=== PATIENT | male | born 1955 ===

== ENCOUNTER 2017-06-08 09:47 | Observation (INO) | payer OTHER ==
--- NOTE | 2017-06-08 10:17 | C.PDOC ---
History Of Present Illness The pt is a 61yo male with no known past medical history, presents to the ED for evaluation after sustaining mechanical fall at 8AM today. Pt reports he was attempting to tie his shoelaces while on the stairs and lost balance (was drinking alcohol night before), subsequently fell down approximately 15 steps of stairs. Pt currently reports he has mid-sternal chest pain as well as right sided back pain, both worsened with deep inspiration. He denies any head injuries, loss of consciousness, neck pain, abdominal pain. Denies headache at this time. Patient also denies use of blood thinners. Pt also denies using any pain medications for his symptoms. Currently, he offers no additional medical complaints. PMD: None . - HPI Time Seen by Provider: 06/08/17 09:56 Chief Complaint (Nursing): Trauma History Per: Patient History/Exam Limitations: no limitations Onset/Duration Of Symptoms: Hrs (2) Injury Occurred (Timing): Hours Ago: (2) Location Of Injury: Right: Back, Anterior: Chest Past Medical History Reviewed: Historical Data, Nursing Documentation, Vital Signs Vital Signs: Last Vital Signs Temp 98.1 F 06/08/17 13:20 Pulse 62 06/08/17 13:20 Resp 18 06/08/17 13:20 BP 117/71 06/08/17 13:20 Pulse Ox 99 06/08/17 13:37 - Medical History PMH: No Chronic Diseases Denies: Diabetes, HTN, Hypercholesterolemia Surgical History: No Surg Hx Family History: States: No Known Family Hx - Social History Hx Tobacco Use: Yes Hx Alcohol Use: Yes Hx Substance Use: No Review Of Systems Except As Marked, All Systems Reviewed And Found Negative. Cardiovascular: Positive for: Chest Pain (mid-sternal) Gastrointestinal: Negative for: Abdominal Pain Musculoskeletal: Positive for: Back Pain. Negative for: Neck Pain Neurological: Negative for: Headache Physical Exam - Physical Exam Appears: Well, No Acute Distress Skin: Normal Color Head: Atraumatic Eye(s): bilateral: Normal Inspection, EOMI Ear(s): Bilateral: Normal Nose: Normal Oral Mucosa: Moist Tongue: Normal Appearing Lips: Normal Appearing Teeth: Normal Dentition Throat: Normal Neck: Normal, No Midline Cervical Tenderness, No Paracervical Tenderness Chest: Tenderness (at right lateral chest wall (lateral ribs)) Cardiovascular: Rhythm Regular Respiratory: Normal Breath Sounds Gastrointestinal/Abdominal: Normal Exam, Soft, No Tenderness Back: Normal Inspection Extremity: Normal ROM, No Deformity, No Swelling Neurological/Psych: Oriented x3, Normal Speech, Normal Cognition ED Course And Treatment - Laboratory Results Result Diagrams: 06/08/17 10:25 06/08/17 10:25 ECG: Interpreted By Me, Viewed By Me ECG Rhythm: Sinus Rhythm ECG Interpretation: Normal Rate From EC O2 Sat by Pulse Oximetry: 99 (RA) Pulse Ox Interpretation: Normal Medical Decision Making Medical Decision Making: Time: 1007 Impression: 61yo male s/p fall, rule out cardiac contusion, pneumothorax, rib fracture Plan: -- CXR -- EKG -- Bloodwork -- Morphine 5mg IV -- Reassess Time: 1037 Upon provider read of CXR, indication of rib fractures noted. CT Chest ordered for further imaging to rule out pneumothorax and additional rib fractures. Time: 1144 CT Chest Impression: Acute fracture at right 7 and 9th ribs laterally. No evidence of pneumothorax or pleural effusion. Time: 1200 Pt complaining of headache, ordered Tylenol 975 mg PO as well as CT Head. ED OBSERVATION Date of observation admission: 06/08/17 Time of observation admission: 12:06 - Observation admission statement Patient is being placed in observation because:: Pt now with headache s/p falling down flight of stairs. Will need more imaging (CT) - Goals of Observation Goals of observation are:: Improvement of symptoms - Progress Note Progress Note: 06/08/17 13:00 CT Head Impression: No evidence of acute intracranial hemorrhage intracranial collection mass effect or midline shift. Sinuses mucosal disease more prominent in the ethmoid and left maxillary sinuses. CT C-Spine Tenderness: No evidence of acute displaced fracture or subluxation at the cervical spine. Moderate degenerative changes more prominent at C5-C6 and C6-C7. 06/08/17 13:05 Pt feels better. Will d/c home. Disposition - Disposition Disposition: HOME/ ROUTINE Disposition Time: 13:37 Condition: IMPROVED - POA Present On Arrival: None - Clinical Impression Clinical Impression: Rib fractures, Fall, Alcohol ingestion - Scribe Statement The provider has reviewed the documentation as recorded by the Hunter Guzman Provider Attestation: All medical record entries made by the Casiibtaniya were at my direction and personally dictated by me. I have reviewed the chart and agree that the record accurately reflects my personal performance of the history, physical exam, medical decision making, and the department course for this patient. I have also personally directed, reviewed, and agree with the discharge instructions and disposition.
[2017-06-08] MEDS ORDERED: Morphine 4 MG/ML VIAL ONE (10:24)
[2017-06-08 10:29] LABS: BASO % 0.3 % (0.0-2.0); EOS # 0.1 K/uL (0.0-0.7); EOS % 0.7 % (0.0-4.0); HEMATOCRIT 42.9 % (35.0-51.0); LYMPH # 1.7 K/uL (1.0-4.3); LYMPH % 15.4 % (20.0-40.0); MEAN CELL VOLUME 92.6 fL (80.0-94.0); MEAN CORPUSCULAR HEMOGLOBIN 31.2 pg (27.0-31.0); MEAN CORPUSCULAR HGB CONC 33.7 g/dL (33.0-37.0); MONO # 0.6 K/uL (0.0-0.8); MONO % 5.2 % (0.0-10.0); NRBC % 0.1 % (0.0-2.0); RED CELL DISTRIBUTION WIDTH 13.8 % (11.5-14.5); WHITE BLOOD COUNT 11.2 K/uL (4.8-10.8)
[2017-06-08 10:38] LABS: CHLORIDE 100 mmol/L (98-107)
[2017-06-08 10:39] LABS: POTASSIUM 4.3 mmol/L (3.6-5.2); SODIUM 139 mmol/L (132-148)
[2017-06-08 10:41] LABS: ALB/GLOB RATIO 1.2 (1.0-2.1); ALKALINE PHOSPHATASE 72 U/L (38-126); ALT/SGPT 28 U/L (21-72); AST/SGOT 28 U/L (17-59); BILIRUBIN,TOTAL 0.6 mg/dL (0.2-1.3); BLOOD UREA NITROGEN 6 mg/dL (9-20); CARBON DIOXIDE 26 mmol/L (22-30); GFR AFRICAN-AMERICAN > 60; GLUCOSE,RANDOM 98 mg/dL (75-110); TOTAL PROTEIN 7.3 g/dL (6.3-8.3)
[2017-06-08 10:42] LABS: ALCOHOL SERUM 59 mg/dl (0-10); MAGNESIUM 1.9 mg/dL (1.6-2.3)
--- NOTE | 2017-06-08 11:46 | CT ---
PROCEDURE: CT Chest without contrast HISTORY: Right rib trauma; r/o pneumothorax more fxs COMPARISON: None. TECHNIQUE: Contiguous axial images were obtained through the chest without intravenous contrast enhancement. Sagittal and coronal reconstructions were performed. Radiation dose (DLP): 217.09 mGy-cm. This CT exam was performed using one or more of the following dose reduction techniques: Automated exposure control, adjustment of the mA and/or kV according to patient size, and/or use of iterative reconstruction technique. FINDINGS: LUNGS: Mild emphysematous changes seen predominant in the right upper lobe. Small linear opacities at the right apex likely scar tissue. No evidence of pneumonia. No evidence of lung contusion. MEDIASTINUM: Unremarkable thoracic aorta. No aneurysm. Normal sized heart. Main pulmonary artery unremarkable. No vascular congestion. No lymphadenopathy. PLEURA: No evidence of pleural effusion or pneumothorax. BONES: Acute fracture at the lateral aspect of the right 9 and 7 ribs. UPPER ABDOMEN: Grossly unremarkable. OTHER FINDINGS: None. IMPRESSION: Acute fracture at the right 7 and 9th ribs laterally. No evidence of pneumothorax or pleural effusion.
--- NOTE | 2017-06-08 12:42 | CT ---
PROCEDURE: CT HEAD WITHOUT CONTRAST. HISTORY: Fell down stairs; now w/ headach; r/o bleed COMPARISON: None available. TECHNIQUE: Axial computed tomography images were obtained through the head/brain without intravenous contrast. Radiation dose: Total exam DLP = 957.66 mGy-cm. This CT exam was performed using one or more of the following dose reduction techniques: Automated exposure control, adjustment of the mA and/or kV according to patient size, and/or use of iterative reconstruction technique. FINDINGS: HEMORRHAGE: No intracranial hemorrhage. BRAIN: No mass effect or edema. No atrophy or chronic microvascular ischemic changes. VENTRICLES: Unremarkable. No hydrocephalus. CALVARIUM: Unremarkable. PARANASAL SINUSES: Moderate sinuses mucosal disease more prominent at the ethmoid and left maxillary sinus. MASTOID AIR CELLS: Unremarkable as visualized. No inflammatory changes. OTHER FINDINGS: None. IMPRESSION: No evidence of acute intracranial hemorrhage intracranial collection mass effect or midline shift. Sinuses mucosal disease more prominent in the ethmoid and left maxillary sinuses.
--- NOTE | 2017-06-08 12:47 | CT ---
PROCEDURE: CT Cervical Spine without contrast HISTORY: Fell down COMPARISON: No prior similar study available for comparison. TECHNIQUE: Axial computed tomography images were obtained of the cervical spine without the use of intravenous contrast. Coronal and sagittal reformatted images were created and reviewed. Radiation dose: Total exam DLP = 478. MGy-cm. This CT exam was performed using one or more of the following dose reduction techniques: Automated exposure control, adjustment of the mA and/or kV according to patient size, and/or use of iterative reconstruction technique. FINDINGS: VERTEBRAE: No fracture. Normal alignment. No destructive bony lesion. DISCS/SPINAL CANAL/NEURAL FORAMINA: Moderate degenerative changes more prominent at C5-C6. Narrowing of the intervertebral disc is space also more prominent at C5-C6 and C6-C7 PARASPINAL SOFT TISSUES: Unremarkable. OTHER FINDINGS: None. IMPRESSION: No evidence of acute displaced fracture or subluxation at the cervical spine. Moderate degenerative changes more prominent at C5-C6 and C6-C7.
[2017-06-08 13:02] VITALS: O2SAT 99
[2017-06-08 13:21] VITALS: BP 117/71; PULSE 62; RESP 18; TEMP 98.1
--- NOTE | 2017-06-08 14:46 | RAD ---
PROCEDURE: Radiographs of the Chest and Right Ribs. HISTORY: Fell down stairs; right lateral rib pain; r/o fx COMPARISON: None available. TECHNIQUE: Frontal radiograph of the chest and multiple oblique radiographs of the right ribs were obtained. FINDINGS: RIGHT RIBS: There are acute fracture at the lateral aspect of the right 9th and 7th ribs. LUNGS: Linear opacity seen at the lung bases may be atelectasis P PLEURA: Blunting of the right costophrenic angle which could be due to pleural thickening or pleural effusion CARDIOVASCULAR: Normal sized heart. No pulmonary vascular congestion. OTHER FINDINGS: None. IMPRESSION: Acute fracture at the lateral aspect of the right 7th and 9th ribs. Blunting of the right costophrenic angle.
--- NOTE | 2017-06-18 20:05 | CARD ---
APPROVED REPORT EKG Measurement Heart [id number] <Conclusion> Normal sinus rhythm Normal ECG
== END 2017-06-08 13:36 | disposition home or self-care (01) ==
LOC: C.ER 09:47 → C.9OBSV 12:05
PROVIDERS: ADMIT Emergency Medicine; ATTEND Emergency Medicine
DX: F10.120 Alcohol abuse with intoxication, uncomplicated (principal); Y90.2 Blood alcohol level of 40-59 mg/100 ml; Z87.891 Personal history of nicotine dependence; S22.43XA Multiple fractures of ribs, bilateral, initial encounter for closed fracture; W10.9XXA Fall (on) (from) unspecified stairs and steps, initial encounter
CPT/HCPCS: 70450; 71101; 71250; 72125; 80053; 82550; 83735; 84484; 85025; 96374; 99285; G0378; G0480; J2270

== ENCOUNTER 2017-10-03 11:27 | Observation (INO) | payer SELFPAY ==
[2017-10-03] MEDS ORDERED: Sodium Chloride 0.9% 1,000 ML IV ONE (11:39)
[2017-10-03] MEDS ORDERED: Sodium Chloride 0.9% 1,000 ML ONE (11:50)
--- NOTE | 2017-10-03 11:52 | C.PDOC ---
History Of Present Illness 62 year old male brought to the ED after having a syncopal episode; patient does not recall what happened but states witness were present. Patient reports feeling sudden onset of CP associated with SOB and then he passed out. As per witness, patient did not hit his head when he passed out. Patient denies prior syncopal episode or PMHx of cardiac disease in immediate family. PMhx of cigarette smoking. Time Seen by Provider: 10/03/17 11:29 Chief Complaint (Nursing): Syncope History Per: Patient, EMS History/Exam Limitations: no limitations Onset/Duration Of Symptoms: Hrs Current Symptoms Are (Timing): Gone Activity At Onset Of Symptoms: Standing Associated Symptoms Preceding Syncopal Episode: Other (CP and SOB) Seizure Or Post-ictal Symptoms: None Fall Associated With With Symptoms: Yes Additional History Per: Patient, EMS Past Medical History Reviewed: Historical Data, Nursing Documentation, Vital Signs Vital Signs: Last Vital Signs Temp 98.2 F 10/05/17 08:52 Pulse 58 L 10/05/17 08:52 Resp 20 10/05/17 08:52 BP 112/68 10/05/17 08:52 Pulse Ox 98 10/05/17 08:52 - Medical History PMH: No Chronic Diseases Surgical History: No Surg Hx Family History: States: No Known Family Hx - Social History Hx Tobacco Use: Yes Hx Alcohol Use: Yes Hx Substance Use: No - Immunization History Hx Tetanus Toxoid Vaccination: No Hx Influenza Vaccination: No Hx Pneumococcal Vaccination: No Review Of Systems Except As Marked, All Systems Reviewed And Found Negative. Constitutional: Negative for: Fever, Chills Cardiovascular: Positive for: Chest Pain. Negative for: Palpitations Respiratory: Positive for: Shortness of Breath. Negative for: Cough Gastrointestinal: Negative for: Nausea, Vomiting, Abdominal Pain, Diarrhea Genitourinary: Negative for: Dysuria, Hematuria Musculoskeletal: Negative for: Neck Pain, Back Pain Skin: Negative for: Rash Neurological: Negative for: Weakness, Numbness, Headache, Dizziness Physical Exam - Physical Exam Appears: Well, Non-toxic, No Acute Distress Skin: Normal Color, Warm, Dry Head: Atraumatic, Normacephalic Eye(s): bilateral: Normal Inspection, PERRL, EOMI Oral Mucosa: Moist Neck: Normal, Normal ROM, No Midline Cervical Tenderness, No Paracervical Tenderness, No Step Off Deformity, Supple Cardiovascular: Rhythm Regular Respiratory: Normal Breath Sounds, No Rales, No Rhonchi, No Wheezing Gastrointestinal/Abdominal: Normal Exam, Bowel Sounds, Soft, No Tenderness Extremity: Normal ROM, No Pedal Edema, No Calf Tenderness, No Swelling Extremity: Bilateral: Atraumatic, Normal Color And Temperature, Normal ROM Neurological/Psych: Oriented x3, Normal Speech, Normal Cognition, Normal Cranial Nerves, No Cerebellar Signs, Normal Motor, Normal Sensation, No Dysarthria, No Romberg Gait: Steady ED Course And Treatment - Laboratory Results Result Diagrams: 10/05/17 07:30 10/05/17 07:30 ECG: Interpreted By Me, Viewed By Me ECG Rhythm: Sinus Rhythm ECG Interpretation: No Acute Changes Interpretation Of ECG: sinus rhythm 74 BPM, occasional PVCs, normal axis, no acute ST or T wave changes. Rate From EC O2 Sat by Pulse Oximetry: 100 (On RA) Pulse Ox Interpretation: Normal - Radiology CXR: Interpreted by Me, Viewed By Me CXR Interpretation: Yes: Other (Right apical pleural thickening and/or scarring. Right lateral 9th rib fracture deformity re-identified.) - CT Scan/US Head CT Other Rad Studies (CT/US): Interpreted By Me, Read By Radiologist, Radiology Report Reviewed CT/US Interpretation: FINDINGS: HEMORRHAGE: No intracranial hemorrhage. BRAIN : No mass effect or edema. Nonspecific white matter hypodensities, which are nonspecific, but often seen with chronic microvascular ischemic disease ; this is most prominent within the right periventricular region. Please note that MRI with diffusion imaging is more sensitive in the detection of acute ischemic event. VENTRICLES: No hydrocephalus. CALVARIUM: Unremarkable. PARANASAL SINUSES: Mucosal thickening of the ethmoid air cells. MASTOID AIR CELLS: Unremarkable as visualized. No inflammatory changes. OTHER FINDINGS: None. IMPRESSION: Nonspecific white matter changes as above. Mucosal thickening of the ethmoid air cells. Correlate clinically for sinusitis. Progress Note: Plan: Blood work, CXR, EKG, CT head ordered and reviewed. Patient given IV NS bolus, PO ASA (after CT head neg). - Physician Consult Information Physician Contacted: Arielle Quinn Disposition - Disposition Disposition: HOSPITALIZED Disposition Time: 14:41 Condition: STABLE - Clinical Impression Clinical Impression: Chest pain, Syncope - Scribe Statement The provider has reviewed the documentation as recorded by the Scribe Matt Gabriel All medical record entries made by the Hunter were at my direction and personally dictated by me. I have reviewed the chart and agree that the record accurately reflects my personal performance of the history, physical exam, medical decision making, and the department course for this patient. I have also personally directed, reviewed, and agree with the discharge instructions and disposition. Decision To Admit - Pt Status Changed To: Hospital Disposition Of: Observation - . Bed Request Type: Telemetry Admitting Physician: Arielle Quinn Patient Diagnosis: Syncope, Chest pain
[2017-10-03 11:58] LABS: BASO % 0.6 % (0.0-2.0); EOS # 0.4 K/uL (0.0-0.7); EOS % 5.4 % (0.0-4.0); HEMATOCRIT 45.7 % (35.0-51.0); LYMPH # 1.7 K/uL (1.0-4.3); LYMPH % 23.7 % (20.0-40.0); MEAN CELL VOLUME 92.5 fL (80.0-94.0); MEAN CORPUSCULAR HEMOGLOBIN 31.5 pg (27.0-31.0); MEAN CORPUSCULAR HGB CONC 34.1 g/dL (33.0-37.0); MEAN PLATELET VOLUME 8.8 fL (7.2-11.7); MONO # 0.6 K/uL (0.0-0.8); MONO % 8.6 % (0.0-10.0); NRBC % 0.1 % (0.0-2.0); RED CELL DISTRIBUTION WIDTH 13.6 % (11.5-14.5); WHITE BLOOD COUNT 7.4 K/uL (4.8-10.8)
[2017-10-03 12:14] LABS: ALB/GLOB RATIO 1.4 (1.0-2.1); ALKALINE PHOSPHATASE 81 U/L (38-126); ALT/SGPT 29 U/L (21-72); AST/SGOT 35 U/L (17-59); BILIRUBIN,TOTAL 0.9 mg/dL (0.2-1.3); BLOOD UREA NITROGEN 8 mg/dL (9-20); CALCIUM 8.2 mg/dl (8.6-10.4); CARBON DIOXIDE 29 mmol/L (22-30); CHLORIDE 104 mmol/L (98-107); GFR AFRICAN-AMERICAN > 60; GLUCOSE,RANDOM 94 mg/dL (75-110); SODIUM 138 mmol/L (132-148); TOTAL PROTEIN 6.6 g/dL (6.3-8.3)
--- NOTE | 2017-10-03 12:24 | CT ---
PROCEDURE: CT HEAD WITHOUT CONTRAST. HISTORY: SYNCOPE COMPARISON: None available. TECHNIQUE: Axial computed tomography images were obtained through the head/brain without intravenous contrast. Radiation dose: Total exam DLP = 925.93 mGy-cm. This CT exam was performed using one or more of the following dose reduction techniques: Automated exposure control, adjustment of the mA and/or kV according to patient size, and/or use of iterative reconstruction technique. FINDINGS: HEMORRHAGE: No intracranial hemorrhage. BRAIN: No mass effect or edema. Nonspecific white matter hypodensities, which are nonspecific, but often seen with chronic microvascular ischemic disease ; this is most prominent within the right periventricular region. Please note that MRI with diffusion imaging is more sensitive in the detection of acute ischemic event. VENTRICLES: No hydrocephalus. CALVARIUM: Unremarkable. PARANASAL SINUSES: Mucosal thickening of the ethmoid air cells. MASTOID AIR CELLS: Unremarkable as visualized. No inflammatory changes. OTHER FINDINGS: None. IMPRESSION: Nonspecific white matter changes as above. Mucosal thickening of the ethmoid air cells. Correlate clinically for sinusitis.
[2017-10-03 12:27] LABS: INR 1.1; PARTIAL THROMBOPLASTIN TIME 33 SECONDS (21-34)
--- NOTE | 2017-10-03 13:12 | RAD ---
HISTORY: SYNCOPE COMPARISON: Chest x-ray performed 06/08/17 TECHNIQUE: Chest, one view. FINDINGS: LUNGS: Right apical pleural thickening and/or scarring. No focal consolidation. Please note that chest x-ray has limited sensitivity for the detection of pulmonary masses. PLEURA: No significant pleural effusion identified. No definite pneumothorax . CARDIOVASCULAR: Heart size appears within normal limits. OSSEOUS STRUCTURES: Right lateral 9th rib fracture deformity re-identified. VISUALIZED UPPER ABDOMEN: Unremarkable. OTHER FINDINGS: None. IMPRESSION: Right apical pleural thickening and/or scarring. Right lateral 9th rib fracture deformity re-identified.
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
[2017-10-03] MEDS: Pantoprazole 20 mg EC Tab PO SCH (17:44)
[2017-10-04 04:47] VITALS: RESP 20
[2017-10-04 06:24] LABS: BASO % 0.3 % (0.0-2.0); EOS # 0.4 K/uL (0.0-0.7); EOS % 5.7 % (0.0-4.0); HEMATOCRIT 42.4 % (35.0-51.0); LYMPH % 27.7 % (20.0-40.0); MEAN CELL VOLUME 92.1 fL (80.0-94.0); MEAN CORPUSCULAR HEMOGLOBIN 30.9 pg (27.0-31.0); MEAN CORPUSCULAR HGB CONC 33.6 g/dL (33.0-37.0); MEAN PLATELET VOLUME 9.1 fL (7.2-11.7); MONO # 0.8 K/uL (0.0-0.8); MONO % 11.7 % (0.0-10.0); RED CELL DISTRIBUTION WIDTH 13.5 % (11.5-14.5); WHITE BLOOD COUNT 7.3 K/uL (4.8-10.8)
[2017-10-04 08:07] LABS: THYROID STIMULATING HORMONE 1.47 mIU/L (0.46-4.68)
[2017-10-04 08:28] LABS: ALB/GLOB RATIO 1.4 (1.0-2.1); ALKALINE PHOSPHATASE 70 U/L (38-126); ALT/SGPT 38 U/L (21-72); AST/SGOT 26 U/L (17-59); BILIRUBIN,TOTAL 1.1 mg/dL (0.2-1.3); BLOOD UREA NITROGEN 7 mg/dL (9-20); CALCIUM 8.1 mg/dl (8.6-10.4); CARBON DIOXIDE 26 mmol/L (22-30); CHLORIDE 105 mmol/L (98-107); CHOLESTEROL 165 mg/dL (0-199); GFR AFRICAN-AMERICAN > 60; GLUCOSE,RANDOM 92 mg/dL (75-110); MAGNESIUM 1.8 mg/dL (1.6-2.3); PHOSPHOROUS 3.4 mg/dL (2.5-4.5); POTASSIUM 3.8 mmol/L (3.6-5.2); SODIUM 137 mmol/L (132-148)
[2017-10-04] MEDS: Pantoprazole 20 mg EC Tab PO SCH (09:36)
[2017-10-04] MEDS: Enoxaparin 30 mg Syringe SC SCH (09:36)
[2017-10-04] MEDS ORDERED: Influenza Vaccine 60 mcg/0.5 mL SYR (4YR UP) IM ONE (14:00)
[2017-10-04] MEDS ORDERED: Pneumococcal 23-Valent Vaccine IM ONE (14:00)
--- NOTE | 2017-10-04 14:16 | VASCLAB ---
PROCEDURE: HISTORY: Syncope COMPARISON: None available. TECHNIQUE: Grayscale and duplex Doppler evaluation of the cervical carotid and vertebral arteries were performed. The common carotid, carotid bifurcations and cervical Internal Carotid Artery (ICA) and proximal External Carotid Artery (ECA) were evaluated. The vertebral arteries were evaluated for gross patency and flow direction. Report prepared by Nacho Stevens, BS, RVT FINDINGS: RIGHT CAROTID ARTERIES: 1. Common Carotid Artery: No significant focal plaque formation of the right common carotid artery. Maximum Peak Systolic velocity: 74 cm/sec: End-diastolic velocity 20 cm/sec. 2. Carotid Bifurcation: plaque formation. Maximum Peak Systolic velocity: 66 cm/sec: End-diastolic velocity 13 cm/sec. 3. Internal Carotid Artery: Plaque description: 84 3.1. Proximal Segment: Peak systolic velocity 52 cm/sec: End-diastolic velocity 17 cm/sec - % stenosis 0-15% 3.2. Middle Segment: Peak systolic velocity 76 cm/sec: End-diastolic velocity 30 cm/sec - % stenosis 0-15% 3.3. Distal Segment: Peak systolic velocity 84 cm/sec: End-diastolic velocity 30 cm/sec - % stenosis 0-15% 4. External Carotid Artery: No significant focal plaque formation. Peak systolic velocity 84 cm/sec 5. ICA/CCA Ratio: 1.1 LEFT CAROTID ARTERIES: 1. Common Carotid Artery: No significant focal plaque formation of the left common carotid artery. Maximum Peak Systolic velocity: 95 cm/sec: End-diastolic velocity 24 cm/sec. 2. Carotid Bifurcation: plaque formation. Maximum Peak Systolic velocity: 74 cm/sec: End-diastolic velocity 22 cm/sec. 3. Internal Carotid Artery: Plaque description: 3.1. Proximal Segment: Peak systolic velocity 76 cm/sec: End-diastolic velocity 27 cm/sec - % stenosis 0-15% 3.2. Middle Segment: Peak systolic velocity 83 cm/sec: End-diastolic velocity 35 cm/sec - % stenosis 0-15% 3.3. Distal Segment: Peak systolic velocity 96 cm/sec: End-diastolic velocity 34 cm/sec - % stenosis 0-15% 4. External Carotid Artery: No significant focal plaque formation. Peak systolic velocity 95 cm/sec 5. ICA/CCA Ratio: 1.0 VERTEBRAL ARTERIES: 1. Right Vertebral Artery: The right vertebral artery flow direction is antegrade. 2. Left Vertebral Artery: The left vertebral artery flow direction is antegrade. OTHER FINDINGS: 1. Right Brachial Blood pressure: 116 mmHg. 2. Left Brachial Blood pressure: 108 mmHg. IMPRESSION: RIGHT: Duplex scan does not suggest hemodynamically significant stenosis of the right extracranial carotid arteries. LEFT: Duplex scan does not suggest hemodynamically significant stenosis of the left extracranial carotid arteries.
--- NOTE | 2017-10-04 16:43 | CP.PCM.PN ---
Addendum entered and electronically signed by Luis Bazzi 10/04/17 17:35: Echocardiogram report: Normal EF, Normal biventricular function, No structural valvular abnormality and no pericardial effusion. Please refer to offical report for a complete impression Original Note: <Luis Bazzi - Last Filed: 10/04/17 17:13> Subjective - Date & Time of Evaluation Date of Evaluation: 10/04/17 Time of Evaluation: 07:40 - Subjective Subjective: Medicine note (PGY-1): Dr. Quinn's service Patient was seen and examined at bedside. Patient states that he is doing well but admits to chest pain and headache that occurred at 4:15am. During the encounter, patient stated that he now has decreased chest pain but still with a headache. Patient denies SOB, palpitations, nausea, vomiting, fever, chills and abdominal pain. Objective - Vital Signs/Intake and Output Vital Signs (last 24 hours): Temp Pulse Resp BP Pulse Ox 98 F 56 L 20 114/64 97 10/04/17 08:11 10/04/17 08:11 10/04/17 08:11 10/04/17 08:11 10/04/17 08:11 Intake and Output: 10/04/17 10/04/17 06:59 18:59 Intake Total 30 300 Balance 30 300 - Medications Medications: Current Medications Aspirin (Aspirin Chewable) 81 mg PO DAILY [facility] Last Admin: 10/04/17 09:36 Dose: 81 mg Enoxaparin Sodium (Lovenox) 30 mg SC DAILY [facility] Last Admin: 10/04/17 09:36 Dose: 30 mg Pantoprazole Sodium (Protonix Ec Tab) 20 mg PO DAILY [facility] Last Admin: 10/04/17 09:36 Dose: 20 mg Rosuvastatin Calcium (Crestor) 5 mg PO HS [facility] Last Admin: 10/03/17 21:14 Dose: 5 mg - Labs Labs: 10/04/17 06:16 10/04/17 06:16 PT 13.0 SECONDS (9.7-12.2) H 10/03/17 11:53 INR 1.1 10/03/17 11:53 APTT 33 SECONDS (21-34) 10/03/17 11:53 - Constitutional Appears: No Acute Distress - Head Exam Head Exam: ATRAUMATIC - Eye Exam Eye Exam: EOMI - ENT Exam ENT Exam: Mucous Membranes Moist - Respiratory Exam Respiratory Exam: Clear to Ausculation Bilateral, NORMAL BREATHING PATTERN - Cardiovascular Exam Cardiovascular Exam: REGULAR RHYTHM, +S1, +S2 - GI/Abdominal Exam GI & Abdominal Exam: Soft, Normal Bowel Sounds. absent: Tenderness - Extremities Exam Extremities Exam: Normal Inspection. absent: Calf Tenderness, Pedal Edema - Neurological Exam Neurological Exam: Alert, Awake, Oriented x3 - Psychiatric Exam Psychiatric exam: Normal Affect - Skin Skin Exam: Normal Color Assessment and Plan (1) Syncope Assessment & Plan: Academic AdviserDr. Minaya consulted----> Help appreciated Labs: * RAFAELA Panel: negative X3, Lipid Panel: T, Chol: 165, LDL: 68, HDL: 72, HgbA1c: 5.1, TSH: 1.47. T3: 1.05 Imaging: * Head CT: Nonspecific white matter changes as above. Mucosal thickening of the ethmoid air cells. Correlate clinically for sinusitis. * Chest X-ray: Right apical pleural thickening and/or scarring. Right lateral 9th rib fracture deformity re-identified * EKG: Normal sinus, Premature ventricular complexes * Carotid doppler: Duplex scan does not suggest hemodynamically significant stenosis of the right extracranial carotid arteries (Right and Left) * Echo: awaiting official report Status: Acute (2) Chest pain Assessment & Plan: Academic AdviserDr. Minaya consulted---> Help appreciated R/o [place] Labs: * RAFAELA Panel: negative X3, Lipid Panel: T, Chol: 165, LDL: 68, HDL: 72, HgbA1c: 5.1, TSH: 1.47. T3: 1.05 Imaging: EKG: Normal sinus, Premature ventricular complexes Echocardiogram: awaiting official report Medications * Aspirin 81 mg PO daily * Crestor 5mg PO HS Status: Acute (3) Status post fall Assessment & Plan: Had a fall 3 months ago * Was seen in ED, noted for RIB fracture; Acute fracture at the lateral aspect of the right 7th and 9th ribs. Blunting of the right costophrenic angle pn chest -x-ray * Alcohol: 59 (06/08/17); Alcohol Quant: <10 (10/03/17) * UDS: Negative Status: Acute (4) History of gastroesophageal reflux (GERD) Assessment & Plan: Protonix 40mg PO daily Status: Acute (5) Prophylactic measure Assessment & Plan: GI: Protonix 20mg PO daily DVT: Score of 2, SCDs, Lovenox 30mg SC daily Heart healthy diet Disposition: Possible discharge tomorrow after Academic Adviser recommendation and official echocardiogram report Status: Acute <Arielle Quinn - Last Filed: 10/04/17 17:52> Objective - Vital Signs/Intake and Output Vital Signs (last 24 hours): Temp Pulse Resp BP Pulse Ox 98.2 F 57 L 20 117/73 99 10/04/17 16:00 10/04/17 16:00 10/04/17 16:00 10/04/17 16:00 10/04/17 16:00 Intake and Output: 10/04/17 10/04/17 06:59 18:59 Intake Total 30 300 Balance 30 300 - Medications Medications: Current Medications Acetaminophen (Tylenol 325mg Tab) 650 mg PO Q6 PRN PRN Reason: Headache Aspirin (Aspirin Chewable) 81 mg PO DAILY [facility] Last Admin: 10/04/17 09:36 Dose: 81 mg Enoxaparin Sodium (Lovenox) 30 mg SC DAILY [facility] Last Admin: 10/04/17 09:36 Dose: 30 mg Pantoprazole Sodium (Protonix Ec Tab) 40 mg PO DAILY [facility] Rosuvastatin Calcium (Crestor) 5 mg PO HS [facility] Last Admin: 10/03/17 21:14 Dose: 5 mg - Labs Labs: 10/04/17 06:16 10/04/17 06:16 PT 13.0 SECONDS (9.7-12.2) H 10/03/17 11:53 INR 1.1 10/03/17 11:53 APTT 33 SECONDS (21-34) 10/03/17 11:53 Attending/Attestation - Attestation I have personally seen and examined this patient.: Yes I have fully participated in the care of the patient.: Yes I have reviewed all pertinent clinical information, including history, physical exam and plan: Yes
--- NOTE | 2017-10-04 17:18 | CARD ---
APPROVED REPORT EXAM: Two-dimensional and M-mode echocardiogram with Doppler and color Doppler. Other Information Quality : GoodRhythm : INDICATION Chest Pain Syncope 2D DIMENSIONS IVSd0.9 (0.7-1.1cm)LVDd4.1 (3.9-5.9cm) PWd1.1 (0.7-1.1cm)LVDs2.5 (2.5-4.0cm) FS (%) 38.7 %LVEF (%)69.5 (>50%) M-Mode DIMENSIONS Left Atrium (MM)3.22 (2.5-4.0cm)Aortic Root3.27 (2.2-3.7cm) Aortic Cusp Exc.2.09 (1.5-2.0cm) Mitral Valve MV E Mtlxujtg32.9cm/sMV A Ffkotcsn24.8cm/sE/A ratio0.8 TDI E/Lateral E'0.0E/Medial E'0.0 Tricuspid Valve TR Peak [id number]/sTR Peak Gr.[id number] LEFT VENTRICLE The left ventricle is normal size. There is normal left ventricular wall thickness. The left ventricular function is normal. The left ventricular ejection fraction is within the normal range. There is normal LV segmental wall motion. Transmitral Doppler flow pattern is normal for age. RIGHT VENTRICLE The right ventricle is normal size. The right ventricular systolic function is normal. ATRIA The left atrium size is normal. The right atrium size is normal. AORTIC VALVE The aortic valve is normal in structure. No aortic regurgitation is present. MITRAL VALVE The mitral valve is normal in structure. There is no mitral valve regurgitation noted. TRICUSPID VALVE The tricuspid valve is normal in structure. There is trace to mild tricuspid regurgitation. Right ventricular systolic pressure is estimated at less than 30 mmHg. PULMONIC VALVE The pulmonic valve is not well visualized. GREAT VESSELS The aortic root is normal in size. The IVC is normal in size and collapses >50% with inspiration. PERICARDIAL EFFUSION There is no pericardial effusion. <Conclusion> Normal biventricular function. No structural valvular abnormality. No pericardial effusion.
--- NOTE | 2017-10-05 02:21 | CON ---
DATE: CARDIOLOGY CONSULTATION LOCATION: Room 652 B. REQUESTED BY: [facility], Dr. Loya. HISTORY OF PRESENT ILLNESS: Requested to see this 62 years old male due to syncopal episode. This nice gentleman is in very good condition, working hard and yesterday while helping to move a garbage container with few other people, he had some pain in the shoulders in the area, went back to work and worked in his office and he was feeling some pain in the back and some headache, tried to breathe hard on few occasions and all of a sudden he passed out. He woke up without any injuries whatsoever. He was brought to the emergency room in totally stable condition. Since admission, his vital signs have remained stable. He had no dizziness, only he was hyperventilating and he passed out. PAST MEDICAL HISTORY: Relatively unremarkable except a few months back, he had an accidental fall, he had some right ribs fractures and those have all healed. There is no history of any hypertension or diabetes. MEDICATIONS: Takes no specific medications at home. REVIEW OF SYSTEMS: Other than that, from the cardiopulmonary view point, no exercise-induced chest discomfort, shortness of breath. No PND, orthopnea, or ankle edema. Rest of the review of systems otherwise is negative. PHYSICAL EXAMINATION: GENERAL: Reveals an elderly male, appears younger for his age, in no distress whatsoever. Actually, he feels fine. I made him walk around here in the hallway back and forth under the telemetry guidance here and he began with sinus arrhythmia, borderline sinus bradycardia, and rate increased physiologically to about 80 while he was doing laps here in telemetry. VITAL SIGNS: Blood pressure earlier today was 114/64, 97% O2 saturation, afebrile. SKIN: Warm, dry. No cyanosis or edema. HEAD, EARS, NOSE, AND THROAT: Totally unremarkable for his age. NECK: Supple. No thyromegaly. LUNGS: Clear to auscultation. CARDIOLOGIC: Jugular veins are normal. Carotids, no bruits. Precordium is unremarkable. Heart sounds normal in intensity and regular. ABDOMEN AND CENTRAL NERVOUS SYSTEM: At this point in time unremarkable. COMPLEMENTARY DATA: CBC: Normal hemoglobin, hematocrit. Electrolytes are normal, so is the renal function. Three sets of troponins were unremarkable. An EKG, which I saw was regular, the sinus arrhythmia, which is physiologically normal. I know they had a carotid duplex ultrasound earlier that was yesterday and it was normal. The chest x-ray, no evidence of any acute cardiopulmonary problems. Heart sounds were normal intensity, no pulmonary congestion, and old rib fractures on the right side, ninth rib. IMPRESSION: Syncopal episode probably due to vasovagal syncope. Cardiologically speaking at this point in time, appears very well compensated. SUGGESTION: Once his workup here for this neurological issue is clear, perhaps he could be discharged home and if symptoms persists or any other questions continue, then we will consider regular stress test for chronotropic response; however, appears to be normal. I just walked him around here on the telemetry and his heart rate improved very physiologically without any issues whatsoever. Christopher Minaya MD cc: Dr. Loya, [facility]
[2017-10-05 07:43] LABS: BASO % 0.3 % (0.0-2.0); EOS # 0.2 K/uL (0.0-0.7); EOS % 2.9 % (0.0-4.0); HEMATOCRIT 42.8 % (35.0-51.0); LYMPH # 1.7 K/uL (1.0-4.3); LYMPH % 19.4 % (20.0-40.0); MEAN CELL VOLUME 92.6 fL (80.0-94.0); MEAN CORPUSCULAR HEMOGLOBIN 31.7 pg (27.0-31.0); MEAN CORPUSCULAR HGB CONC 34.2 g/dL (33.0-37.0); MEAN PLATELET VOLUME 9.2 fL (7.2-11.7); MONO # 0.8 K/uL (0.0-0.8); MONO % 9.8 % (0.0-10.0); NRBC % 0.1 % (0.0-2.0); RED CELL DISTRIBUTION WIDTH 13.5 % (11.5-14.5); WHITE BLOOD COUNT 8.6 K/uL (4.8-10.8)
[2017-10-05 08:03] LABS: ALB/GLOB RATIO 1.5 (1.0-2.1); ALKALINE PHOSPHATASE 70 U/L (38-126); ALT/SGPT 39 U/L (21-72); AST/SGOT 22 U/L (17-59); BILIRUBIN,TOTAL 1.1 mg/dL (0.2-1.3); BLOOD UREA NITROGEN 10 mg/dL (9-20); CALCIUM 8.4 mg/dl (8.6-10.4); CARBON DIOXIDE 28 mmol/L (22-30); CHLORIDE 104 mmol/L (98-107); GFR AFRICAN-AMERICAN > 60; GLUCOSE,RANDOM 96 mg/dL (75-110); MAGNESIUM 1.9 mg/dL (1.6-2.3); PHOSPHOROUS 3.4 mg/dL (2.5-4.5); POTASSIUM 3.9 mmol/L (3.6-5.2); SODIUM 138 mmol/L (132-148); TOTAL PROTEIN 6.1 g/dL (6.3-8.3)
[2017-10-05 08:53] VITALS: BP 112/68; PULSE 58; TEMP 98.2
[2017-10-05] MEDS: Enoxaparin 30 mg Syringe SC SCH (09:18)
[2017-10-05] MEDS ORDERED: Pantoprazole 40 mg EC Tab PO SCH (10:00)
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
--- NOTE | 2017-10-05 22:56 | CARD ---
APPROVED REPORT EKG Measurement Heart [id number] <Conclusion> Sinus rhythm with marked sinus arrhythmia with occasional premature ventricular complexes Otherwise normal ECG
[2017-10-06 16:23] VITALS: O2SAT 100
--- NOTE | 2017-10-07 19:16 | CARD ---
APPROVED REPORT EKG Measurement Heart [id number] <Conclusion> Sinus bradycardia Otherwise normal ECG
--- NOTE | 2017-10-07 19:17 | CARD ---
APPROVED REPORT EKG Measurement Heart [id number] <Conclusion> Normal sinus rhythm Normal ECG
--- NOTE | 2017-10-07 19:17 | CARD ---
APPROVED REPORT EKG Measurement Heart [id number] <Conclusion> Poor data quality, interpretation may be adversely affected Normal sinus rhythm Normal ECG
== END 2017-10-05 16:00 | disposition home or self-care (01) ==
LOC: C.ER 11:27 → C.9E 14:41 → C.6T 17:21
PROVIDERS: ADMIT Internal Medicine; ATTEND Internal Medicine
DX: R07.9 Chest pain, unspecified (principal); R55 Syncope and collapse; K21.9 Gastro-esophageal reflux disease without esophagitis; Z72.0 Tobacco use
CPT/HCPCS: 36415; 70450; 71010; 80053; 80061; 82306; 82550; 82553; 82948; 83036; 83735; 83880; 84100; 84439; 84443; 84484; 85025; 85378; 85610; 85730; 90674; 90732; 93005; 93306; 93880; 96360; 97116; 97162; 99285; G0008; G0009; G0378; G0480; G8978; G8979; J1650; J7040